=== PATIENT | male | born 1980 | race Caucasian/White ===

== ENCOUNTER 2017-04-08 22:34 | Emergency (ER) | payer SELFPAY ==
[~2017-04-08] VITALS: Ht 193 cm; Wt 73.9 kg
[2017-04-08 22:35] VITALS: BP 131/73
== END 2017-04-09 00:31 | disposition home or self-care (01) ==
LOC: ED 23:59
DX: L55.0 Sunburn of first degree (principal); H57.8 Other specified disorders of eye and adnexa
CPT/HCPCS: 99282

== ENCOUNTER 2017-04-11 21:10 | Observation (INO) | payer SELFPAY ==
[~2017-04-11] VITALS: Ht 193 cm; Wt 73.5 kg
[2017-04-11 22:04] LABS: ACETAMINOPHEN < 2 mcg/mL (10-30); BLOOD UREA NITROGEN 13 mg/dL (7-18)
[2017-04-11 22:44] LABS: DAU SCREEN DISCLAIMER
[2017-04-12] MEDS ORDERED: ZIPRASIDONE 20MG CAPSULE PO PRN (01:00)
[2017-04-12] MEDS ORDERED: BISACODYL 10 MG SUPP PR PRN (02:00)
[2017-04-12] MEDS ORDERED: POLYETHYLENE GLYCOL 17 GM PACKET PO PRN (02:00)
[2017-04-12] MEDS ORDERED: TRAZODONE 50MG TABLET PO PRN (02:00)
[2017-04-12] MEDS ORDERED: DOCUSATE 100 MG CAPSULE PO PRN (02:00)
[2017-04-12 02:37] LABS: HIV 1&2 ANTIBODY SCREEN Nonreactive (Nonreactive); HIV-1 p24 ANTIGEN Nonreactive (Nonreactive)
[2017-04-12] MEDS ORDERED: HALOPERIDOL 5 MG/ML IM PRN (05:30)
[2017-04-12] MEDS ORDERED: HALOPERIDOL 5 MG/ML ONE (05:33)
[2017-04-12] MEDS: NICOTINE 14MG/24 HR PATCH.TD24 TD SCH (09:00)
[2017-04-12] MEDS: THIAMINE 100MG TABLET PO SCH (09:56)
[2017-04-12] MEDS: FOLIC ACID 1 MG TABLET PO SCH (09:56)
[2017-04-12 10:55] LABS: HEPATITIS C VIRUS ANTIBODY Reactive (Nonreactive)
[2017-04-12 10:56] VITALS: BP 120/68
[2017-04-12] MEDS ORDERED: [UNRECOGNIZED DRUG - OTHER] MC SCH (15:00)
[2017-04-12 16:46] VITALS: BP 112/61
[2017-04-12] MEDS ORDERED: LORazepam 2 MG/ML, 1ML IM PRN (17:30)
[2017-04-12 20:01] VITALS: BP 139/75
[2017-04-12] MEDS: ZIPRASIDONE 40MG CAPSULE PO SCH (23:00)
[2017-04-13 08:00] VITALS: BP 124/82
[2017-04-13] MEDS: NICOTINE 14MG/24 HR PATCH.TD24 TD SCH (09:00)
[2017-04-13] MEDS: THIAMINE 100MG TABLET PO SCH (09:17)
[2017-04-13] MEDS: FOLIC ACID 1 MG TABLET PO SCH (09:17)
[2017-04-13] MEDS: ZIPRASIDONE 40MG CAPSULE PO SCH ×2 (09:19→21:19)
[2017-04-13] MEDS: ACETAMINOPHEN 325 MG TABLET PO PRN ×2 (18:26→19:03)
[2017-04-13] MEDS: ENOXAPARIN 40 MG/0.4 ML SQ SCH (19:34)
[2017-04-13 19:46] VITALS: BP 130/76
[2017-04-14 07:55] VITALS: BP 134/77
[2017-04-14] MEDS: THIAMINE 100MG TABLET PO SCH (08:56)
[2017-04-14] MEDS: ACETAMINOPHEN 325 MG TABLET PO PRN (08:56)
[2017-04-14] MEDS: NICOTINE 14MG/24 HR PATCH.TD24 TD SCH (08:56)
[2017-04-14] MEDS: ZIPRASIDONE 40MG CAPSULE PO SCH ×2 (08:56→20:38)
[2017-04-14] MEDS: FOLIC ACID 1 MG TABLET PO SCH (08:56)
[2017-04-14] MEDS: ENOXAPARIN 40 MG/0.4 ML SQ SCH (19:00)
[2017-04-14 19:28] VITALS: BP 105/63
== END 2017-04-14 21:15 ==
LOC: ED 23:20 → EDIP 04-12 01:05 → 3E 04-12 02:36
PROVIDERS: ADMIT Internal Medicine; ATTEND Internal Medicine
DX: T40.1X2A Poisoning by heroin, intentional self-harm, initial encounter (principal); F22 Delusional disorders; F12.10 Cannabis abuse, uncomplicated; F32.9 Major depressive disorder, single episode, unspecified; F42.9 Obsessive-compulsive disorder, unspecified; F15.959 Other stimulant use, unspecified with stimulant-induced psychotic disorder, unspecified; F29 Unspecified psychosis not due to a substance or known physiological condition; Z91.19 Patient's noncompliance with other medical treatment and regimen; Y92.89 Other specified places as the place of occurrence of the external cause
CPT/HCPCS: 36415; 80048; 80074; 80307; 80329; 82040; 84439; 84443; 85025; 86703; 87521; 87899; 96372; 99285; G0378; J1630; G0435; G0480